=== PATIENT | female | born 1960 | race Caucasian/White ===

== ENCOUNTER 2017-03-28 21:24 | Inpatient (IN) | payer BC ==
[2017-03-28] MEDS ORDERED: NORMAL SALINE 1,000 ML IV ONE (21:57)
[2017-03-28 22:12] LABS: Hematocrit 29.3 % (37.0-47.0); Hemoglobin 9.6 gm/dL (12.5-16.0); Mean Cell Volume 93.6 fl (78-100); Mean Corpuscular Hemoglobin 30.7 pg (27-31); Mean Corpuscular Hgb Conc 32.8 g/dl (32-36); Mean Platelet Volume 9.4 fl (6.0-9.5); Neutrophil # 19.1 K/mm3 (1.3-6.0); Neutrophil % 91.1 % (42-75.0); Platelet Count 331 K/mm3 (150-450); Red Blood Count 3.13 M/mm3 (4.2-5.4); Red Cell Distribution Width 13.6 % (11.5-14.0); White Blood Count 20.9 K/mm3 (4.0-10.5)
[2017-03-28 22:25] LABS: Albumin * 2.9 gm/dl (3.4-5.0); Anion Gap 14.9 mmol/L (6.8-13.8); BUN/Creatinine Ratio 13.4 (9.0-21.6); Bilirubin, Total 0.3 mg/dL (0.0-1.1); Ca. Corrected For Albumin 9.5 mg/dL (8.4-10.2); Calcium * 8.9 mg/dL (7.9-10.9); Carbon Dioxide 24.1 mmol/L (24-32.6); Total Protein 7.4 gm/dL (6.2-8.2)
[2017-03-28 22:29] LABS: Urine Bilirubin Negative (NEGATIVE); Urine Blood 250 /ul (NEGATIVE); Urine Ketone Negative (NEGATIVE); Urine Nitrite Negative (NEGATIVE); Urine Protein 100 mg/dL (NEGATIVE); Urine Urobilinogen Normal (NORMAL)
[2017-03-28] MEDS ORDERED: HYDROmorphone HCL 1 MG/ML DISP.SYRIN IV ONE (22:33)
[2017-03-28 22:36] LABS: Urine Appearance Cloudy; Urine Color Pale Yellow
[2017-03-28 22:37] LABS: Urine Bacteria 3+; Urine RBC 0-5 /hpf (0-5); Urine WBC >50 /hpf (0-5)
--- NOTE | 2017-03-28 22:41 | ERNOTE ---
Abdominal HPI - Narrative Date of Service: 03/28/17 - General Chief Complaint: Abdominal Pain Time Seen by Provider: 03/28/17 21:56 Source: patient - Immun/Allergies/Home Medications Immunizatons: IMMUNIZATION HX Immunizations Up to Date Yes History of Influenza Vaccine No Hx Pneumococcal Vaccination No Allergies/Adverse Reactions: Allergies penicillin V potassium [From Pen-Vee K] Allergy (Mild, Verified 06/28/14 08:39) Home Medications: HOME MEDICATIONS Famotidine 20 mg PO DAILY 03/01/13 [Last Taken Unknown] Lovastatin 40 mg PO DAILY 03/01/13 [Last Taken Unknown] Mycophenolate Mofetil [Cellcept] 500 mg PO BID 03/01/13 [Last Taken Unknown] Tacrolimus [Hecoria] 3 mg PO BID 03/01/13 [Last Taken Unknown] predniSONE [Prednisone] 5 mg PO DAILY 03/01/13 [Last Taken Unknown] Amlodipine Besylate 10 mg PO DAILY 03/28/17 [Last Taken Unknown] Cyanocobalamin (Vitamin B-12) [Vitamin B12] 2,500 mcg PO DAILY 03/28/17 [Last Taken Unknown] Sodium Bicarbonate 325 mg PO TID 03/28/17 [Last Taken Unknown] - History of Present Illness Narrative: Patient presents with left sided flank pain for 2 days she also complains of nausea and fatigue. She denies any dysuria. She states that she takes 2 bites of food and she feels nauseated and is unable to eat any longer. - Patient's Past Medical History Patient History - Medical: No pertinent hx Patient History - Cardiac/Respiratory: No pertinent hx Patient History - Cancer: No Hx of Cancer Patient History - Surgical Procedures: Other Patient History - Other: None - Social History Living Situations: spouse Abuse History: No History of abuse Psych History: No pertinent hx Smoking Status: Never smoker Have you smoked in the past 12 months: No Do you dip or chew tobacco: No Alcohol Use: none Drug Use: none - Immunizations Immunizations Up to Date: Yes Hx Pneumococcal Vaccination: No History of Influenza Vaccine: No ED Progress - Vital Signs Vital Signs: Vital Signs 03/28/17 21:34 Temperature 37.4 C Pulse Rate 110 H Respiratory 16 Rate Blood Pressure 123/74 O2 Sat by Pulse 97 Oximetry - Progress/Reassessment Chief Complaint: Abdominal Pain Departure Clinical Impression: Pyelonephritis - Departure Disposition: [facility] Condition: Fair
[2017-03-28 23:48] LABS: Urine Bilirubin Negative (NEGATIVE); Urine Blood 250 /ul (NEGATIVE); Urine Ketone Negative (NEGATIVE); Urine Nitrite Negative (NEGATIVE); Urine Protein 100 mg/dL (NEGATIVE); Urine Urobilinogen Normal (NORMAL); Urine pH 6.5 pH (5.0-7.0)
[2017-03-28] MEDS ORDERED: HYDROmorphone HCL 1 MG/ML DISP.SYRIN ONE (23:49)
[2017-03-28 23:53] LABS: Urine Appearance Cloudy; Urine Color Pale Yellow
[2017-03-28 23:54] LABS: Urine Bacteria 3+; Urine WBC >50 /hpf (0-5)
[2017-03-29] MEDS ORDERED: NORMAL SALINE 1,000 ML IV ONE (00:36)
[2017-03-29] MEDS ORDERED: ONDANSETRON HCL/PF 2 MG/ML VIAL IV PRN (00:46)
[2017-03-29] MEDS ORDERED: ONDANSETRON HCL/PF 2 MG/ML VIAL ONE (00:51)
[2017-03-29] MEDS ORDERED: ACETAMINOPHEN 325 MG TABLET PO ONE (01:04)
[2017-03-29] MEDS ORDERED: ACETAMINOPHEN 325 MG TABLET ONE (01:05)
--- NOTE | 2017-03-29 01:37 | HP ---
Chief Complaint - Chief Complaint Date of Service: 03/29/17 Time of Service: 01:28 Chief Complaint: "Abdominal Pain & Nausea". Source of HPI- Pt; reliable, ERP report, History of Present Illness: Ms. Miner is a 56-yr-old [place] pt of Dr. Andrei Vogel in [place], [place]. Her PMH is significant for: Anemia, HLD, Bilateral Renal Calcifications, Depression, Polycystic kidney disease s/p RT renal transplant 2011 & Secondary hyperparathyroidsm. Pt states that she first developed LT flank pain on Tuesday 03/27. She took OTC pain medication which provided little relief. Then over the weekend, she started developing nausea, but no vomiting. She reports having decreased appetite and has not drunk much fluid or eaten well. The pain has been unrelenting for the past 3 days and finally chose to come to the ED tonight. The pain radiates to the lower abdomen. She denies fevers, but reports having chills. At the ED tonight, Laboratory studies showed an elevated WBC of 20,900 with a LT shift, BUN/CR of 42/3.14, Est. GFR of 16 and UA was positive for a UTI. During physical examination, she in mild distress from LT flank pain , is found to have LT CVA Tenderness and febrile with a temp of 38. The Abdominal X-ray at the ED did not have any acute findings. No additional radiographic imaging pending/completed. She will be admitted for further work- up of ALIVIA given it's presentation with UTI. - Patient's Past Medical History Patient History - Medical: Anemia, Depression, Other - Bilateral Renal Calcifications, Depression, Polycystic kidney disease s/p RT renal transplant 2011 & Secondary hyperparathyroidsm. Patient History - Cardiac/Respiratory: No pertinent hx Patient History - Cancer: No Hx of Cancer Patient History - Surgical Procedures: Other - Cystoscopy, 2009 Patient History - Other: None - Family History Mother Family History - Medical: , Renal Failure Family History - Cardiac/Respiratory: No pertinent hx Family History - Cancer: No pertinent family hx Brother Family History - Medical: Renal Failure, Other Father Family History - Medical: , History Unknown Family History - Cardiac/Respiratory: History Unknown Family History - Cancer: History Unknown - Social History Living Situations: spouse Abuse History: No History of abuse Psych History: No pertinent hx Smoking Status: Never smoker Have you smoked in the past 12 months: No Do you dip or chew tobacco: No Alcohol Use: none Drug Use: none - Immunizations Immunizations Up to Date: Yes Hx Pneumococcal Vaccination: No History of Influenza Vaccine: No Review Of Systems (GEN) - Review of Systems Generalized/Overall Review: Present: Weakness, Chills, Fever EENTM: Absent: Eye Pain, Blurred Vision, Tearing Respiratory: Absent: Cough, Shortness of Breath, Orthopnea Cardiac: Absent: Chest Pain, Edema, Palpitations Abdominal: Present: Nausea, Vomiting, Abdominal Pain. Absent: Hematemesis, Constipation, Diarrhea Genitourinary: Absent: Burning, Itching, Urgency, Frequency Musculoskeletal: Absent: Joint Pain, Back Pain, Joint Swelling Neurological: Absent: Headache, Anxiety, Depressed, Emotional Problems Skin: Absent: Dryness, Lesions, Lumps Endocrine: Present: Intolerance to Cold. Absent: Increased Hunger, Increased Thirst Misc: All systems neg except as marked Allergies/Adverse Reactions: Allergies Allergy/AdvReac Type Severity Reaction Status Date / Time penicillin V potassium Allergy Mild Verified 06/28/14 08:39 [From Enoch Hidalgo] Home Medications: HOME MEDICATIONS Famotidine 20 mg PO DAILY 03/01/13 [Last Taken Unknown] Lovastatin 40 mg PO DAILY 03/01/13 [Last Taken Unknown] Mycophenolate Mofetil [Cellcept] 500 mg PO BID 03/01/13 [Last Taken Unknown] Tacrolimus [Hecoria] 3 mg PO BID 03/01/13 [Last Taken Unknown] predniSONE [Prednisone] 5 mg PO DAILY 03/01/13 [Last Taken Unknown] Amlodipine Besylate 10 mg PO DAILY 03/28/17 [Last Taken Unknown] Cyanocobalamin (Vitamin B-12) [Vitamin B12] 2,500 mcg PO DAILY 03/28/17 [Last Taken Unknown] Sodium Bicarbonate 325 mg PO TID 03/28/17 [Last Taken Unknown] Exam - Exam Vital Signs: Vital Signs - Last Taken Temp 38.1 C H 03/28/17 23:52 Pulse 99 03/28/17 23:52 Resp 18 03/28/17 23:52 BP 137/63 03/28/17 23:52 Pulse Ox 98 03/28/17 23:52 Constitutional: Present: Alert, Oriented x3, Cooperative, Mild distress ENT Exam: Present: normal ENT inspection. Absent: nasal congestion, nasal drainage Eye Exam: bilateral eye: normal inspection, PERRL Neck: Present: non-tender, full range of motion, supple Back Exam: Present: CVA tenderness (L) Breasts: Present: Exam deferred Respiratory: Present: lungs clear, no accessory muscle use, No wheezing Cardiovascular/Chest: Present: tachycardia Abdomen: Present: Normal bowel sounds, soft, tender - llq /Rectal: Present: Exam deferred Extremity: Present: normal range of motion, non-tender, normal inspection Skin Exam: Present: warm/dry, no cyanosis Lymphatic: Present: no adenopathy Neurologic: Present: no motor/sensory deficits, alert, oriented x 3 Appearance: Present: appropriate appearance, appropriate insight Eye contact: Present: cooperative, good eye contact, normal speech Thoughts: Present: normal thought pattern, no apparent hallucination Diagnostic Studies: Laboratory Results WBC 20.9 K/mm3 (4.0-10.5) H 03/28/17 22:10 RBC 3.13 M/mm3 (4.2-5.4) L 03/28/17 22:10 Hgb 9.6 gm/dL (12.5-16.0) L 03/28/17 22:10 Hct 29.3 % (37.0-47.0) L 03/28/17 22:10 MCV 93.6 fl (78-100) 03/28/17 22:10 MCH 30.7 pg (27-31) 03/28/17 22:10 MCHC 32.8 g/dl (32-36) 03/28/17 22:10 RDW 13.6 % (11.5-14.0) 03/28/17 22:10 Plt Count 331 K/mm3 (150-450) 03/28/17 22:10 MPV 9.4 fl (6.0-9.5) 03/28/17 22:10 Immature Gran % (Auto) 0.70 % (0.001-0.429) H 03/28/17 22:10 Immature Gran # (Auto) 0.15 K/mm3 (0.000-0.0310) H 03/28/17 22:10 Neutrophils % 91.1 % (42-75.0) H 03/28/17 22:10 Lymphocytes % 2.2 % (20-51) L 03/28/17 22:10 Monocytes % 6.0 % (0.0-9) 03/28/17 22:10 Eosinophils % 0.0 % (0.0-3.0) 03/28/17 22:10 Basophils % 0.0 % (0.0-1.0) 03/28/17 22:10 Nucleated RBC % 0.0 k/mm3 (0-1) 03/28/17 22:10 Neutrophils # 19.1 K/mm3 (1.3-6.0) H 03/28/17 22:10 Lymphocytes # 0.5 k/mm3 (1.5-3.5) L 03/28/17 22:10 Monocytes # 1.3 k/mm3 (0.0-1.0) H 03/28/17 22:10 Eosinophils # 0.0 k/mm3 (0.0-0.7) 03/28/17 22:10 Absolute Basophils 0.0 k/mm3 (0.0-0.1) 03/28/17 22:10 Sodium 135 mmol/L (132-142) 03/28/17 22:10 Plasma Sodium 136 mmol/L (130-142) 03/28/17 22:10 Potassium 4.0 mmol/L (3.4-4.6) 03/28/17 22:10 Chloride 100 mmol/L (97-106) 03/28/17 22:10 Carbon Dioxide 24.1 mmol/L (24-32.6) 03/28/17 22:10 Anion Gap 14.9 mmol/L (6.8-13.8) H 03/28/17 22:10 BUN 42 mg/dL (3-23) H 03/28/17 22:10 Creatinine 3.14 mg/dL (0.4-1.4) H 03/28/17 22:10 Est GFR (Non-Af Amer) 16 mL/min (60-130) L D 03/28/17 22:10 BUN/Creatinine Ratio 13.4 (9.0-21.6) 03/28/17 22:10 Random Glucose 156 mg/dL (70-110) H 03/28/17 22:10 Lactic Acid, Venous 0.9 mmol/L (0.4-1.9) 03/28/17 23:35 Calcium 8.9 mg/dL (7.9-10.9) 03/28/17 22:10 Calcium Adj for Albumin 9.5 mg/dL (8.4-10.2) 03/28/17 22:10 Total Bilirubin 0.3 mg/dL (0.0-1.1) 03/28/17 22:10 AST 8 U/L (0-48) 03/28/17 22:10 ALT 10 U/L (19-67) L 03/28/17 22:10 Alkaline Phosphatase 89 U/L (50-170) 03/28/17 22:10 Total Protein 7.4 gm/dL (6.2-8.2) 03/28/17 22:10 Albumin 2.9 gm/dl (3.4-5.0) L 03/28/17 22:10 Urine Color Pale yellow 03/28/17 23:35 Urine Appearance Cloudy 03/28/17 23:35 Urine pH 6.5 pH (5.0-7.0) 03/28/17 23:35 Ur Specific Vera 1.010 SP.GR. (1.005-1.010) 03/28/17 23:35 Urine Protein 100 mg/dL (NEGATIVE) H 03/28/17 23:35 Urine Glucose (UA) Negative mg/dL (NEGATIVE) 03/28/17 23:35 Urine Ketones Negative mg/dL (NEGATIVE) 03/28/17 23:35 Urine Blood 250 /ul (NEGATIVE) H 03/28/17 23:35 Urine Nitrate Negative (NEGATIVE) 03/28/17 23:35 Urine Bilirubin Negative mg/dl (NEGATIVE) 03/28/17 23:35 Prot Sulfosalicylic Acd 4+ mg/dL (0) H 03/28/17 23:35 Urine Urobilinogen Normal EU/dl (NORMAL) 03/28/17 23:35 Ur Leukocyte Esterase 100 /ul (NEGATIVE) H 03/28/17 23:35 Urine RBC 5-10 /hpf (0-5) H 03/28/17 23:35 Urine WBC >50 /hpf (0-5) H 03/28/17 23:35 Ur Epithelial Cells None seen /hpf (0-5) 03/28/17 23:35 Urine Bacteria 3+ (NONE) H 03/28/17 23:35 Urine Culture Comments Culture to follow 03/28/17 23:35 Assessment/Plan - Assessment/Plan (1) Pyelonephritis Assessment: Pt presented with LT flank pain, fever, nausea, noted to have a UTI on UA and had LT CVA tenderness. Started on Rocephin 2 gm IV and will continue till urine culture results. Consider need for additional imaging to determine if there is urinary tract obstruction. Problem: Acute (2) UTI (urinary tract infection) Assessment: Continue with Rocephin for now due to poor kidney function. Laboratory Tests 03/28/17 03/28/17 22:24 23:35 Urine Protein 100 H Urine Blood 250 H 250 H Prot Sulfosalicylic Acd 4+ H Ur Leukocyte Esterase 100 H Urine RBC 5-10 H Urine WBC >50 H Urine Bacteria 3+ H Problem: Acute (3) Acute kidney injury Assessment: Suspect that the ALIVIA is due to postrenal causes from obstruction of urinal flow or other extrarenal or intrarenal obstruction. She has a history of bilateral renal calcifications. Consider obtaining a Renal US or Abdominal US in am. Laboratory Tests 03/28/17 22:10 BUN 42 H Creatinine 3.14 H Est GFR (Non-Af Amer) 16 L D Problem: Acute (4) HLD (hyperlipidemia) Assessment: Stable- On Zocor. Problem: Chronic (5) Depression Problem: Chronic
[2017-03-29] MEDS ORDERED: TACROLIMUS ANHYDROUS 0.5 MG CAPSULE PO SCH (02:00)
[2017-03-29] MEDS ORDERED: MYCOPHENOLATE MOFETIL 500 MG TABLET PO SCH (02:00)
[2017-03-29 06:17] LABS: Hematocrit 31.7 % (37.0-47.0); Hemoglobin 9.8 gm/dL (12.5-16.0); Mean Cell Volume 96.6 fl (78-100); Mean Corpuscular Hemoglobin 29.9 pg (27-31); Mean Corpuscular Hgb Conc 30.9 g/dl (32-36); Mean Platelet Volume 9.6 fl (6.0-9.5); Neutrophil # 15.2 K/mm3 (1.3-6.0); Neutrophil % 88.3 % (42-75.0); Platelet Count 312 K/mm3 (150-450); Red Blood Count 3.28 M/mm3 (4.2-5.4); Red Cell Distribution Width 13.4 % (11.5-14.0); White Blood Count 17.2 K/mm3 (4.0-10.5)
[2017-03-29 06:20] LABS: Anion Gap 15.6 mmol/L (6.8-13.8); BUN/Creatinine Ratio 12.2 (9.0-21.6); Calcium * 8.5 mg/dL (7.9-10.9); Carbon Dioxide 22.6 mmol/L (24-32.6); Estimated Creat Clear 16.4; Potassium 4.2 mmol/L (3.4-4.6)
[2017-03-29] MEDS: CYANOCOBALAMIN 1,000 MCG TABLET PO SCH (07:38)
[2017-03-29] MEDS: MYCOPHENOLATE MOFETIL 500 MG TABLET PO SCH ×2 (07:38→16:50)
[2017-03-29] MEDS: SODIUM BICARBONATE 650 MG TABLET PO SCH ×3 (07:38→16:56)
[2017-03-29] MEDS: TACROLIMUS ANHYDROUS 0.5 MG CAPSULE PO SCH ×2 (07:38→16:49)
[2017-03-29] MEDS: FAMOTIDINE 20 MG TABLET PO SCH (07:39)
[2017-03-29] MEDS: predniSONE 5 MG TABLET PO SCH (07:39)
[2017-03-29] MEDS: amLODIPine BESYLATE 10 MG TABLET PO SCH (07:39)
[2017-03-29] MEDS ORDERED: CYANOCOBALAMIN 1,000 MCG TABLET PO SCH (09:00)
[2017-03-29] MEDS ORDERED: SODIUM BICARBONATE 650 MG TABLET PO SCH (09:00)
[2017-03-29] MEDS ORDERED: predniSONE 5 MG TABLET PO SCH (09:00)
[2017-03-29] MEDS ORDERED: FLU VACC QS2017-18(6MOS UP)/PF 60 MCG/0.5 ML SYRINGE IM ONE (09:00)
[2017-03-29] MEDS ORDERED: FAMOTIDINE 20 MG TABLET PO SCH (09:00)
[2017-03-29] MEDS ORDERED: amLODIPine BESYLATE 10 MG TABLET PO SCH (09:00)
[2017-03-29] MEDS: DEXTROSE 5%-0.5 NORMAL SALINE 1,000 ML IV PRN ×2 (10:49→18:53)
[2017-03-29] MEDS: HYDROmorphone HCL 1 MG/ML DISP.SYRIN IV PRN ×3 (12:21→18:56)
--- NOTE | 2017-03-29 16:41 | PN ---
Progess Note - Interim Narrative: 03/29/17 16:34 Her WBC has improved . Her fever has lysed for now. She continues to have left flank pain on and off. Her CJ showed no hydronephrosis, pelviecstasis on her right transplant kidney, multiple cysts b/l kidneys, no renal stones. Will continue with her IVF, IV antibiotics. Her pain could be due to her cysts that can be come hemorrhagic. Her pelviecstasis- dilatations could be seen in transplanted kidneys but cannot rule out UTO. Her s/sx are on the left are on the left side though. Will get Urology consult.
[2017-03-29] MEDS: SIMVASTATIN 20 MG TABLET PO SCH (20:08)
[2017-03-30] MEDS: ACETAMINOPHEN 325 MG TABLET PO PRN ×2 (01:31→12:59)
[2017-03-30 06:00] LABS: Hematocrit 27.9 % (37.0-47.0); Mean Cell Volume 94.9 fl (78-100); Mean Corpuscular Hemoglobin 30.6 pg (27-31); Mean Corpuscular Hgb Conc 32.3 g/dl (32-36); Neutrophil # 16.7 K/mm3 (1.3-6.0); Platelet Count 299 K/mm3 (150-450); Red Blood Count 2.94 M/mm3 (4.2-5.4); Red Cell Distribution Width 13.5 % (11.5-14.0)
[2017-03-30 06:20] LABS: Anion Gap 16.1 mmol/L (6.8-13.8); BUN/Creatinine Ratio 9.9 (9.0-21.6); Calcium * 8.6 mg/dL (7.9-10.9); Estimated Creat Clear 18.4; Potassium 4.1 mmol/L (3.4-4.6)
[2017-03-30] MEDS: MYCOPHENOLATE MOFETIL 500 MG TABLET PO SCH ×2 (06:27→17:17)
[2017-03-30] MEDS: predniSONE 5 MG TABLET PO SCH (06:27)
[2017-03-30] MEDS: amLODIPine BESYLATE 10 MG TABLET PO SCH (06:28)
[2017-03-30] MEDS: FAMOTIDINE 20 MG TABLET PO SCH (06:28)
[2017-03-30] MEDS: TACROLIMUS ANHYDROUS 0.5 MG CAPSULE PO SCH ×2 (06:28→17:17)
[2017-03-30] MEDS: CYANOCOBALAMIN 1,000 MCG TABLET PO SCH (06:28)
[2017-03-30] MEDS: SODIUM BICARBONATE 650 MG TABLET PO SCH ×3 (06:28→17:17)
[2017-03-30] MEDS: DEXTROSE 5%-0.5 NORMAL SALINE 1,000 ML IV PRN ×2 (06:31→20:46)
--- NOTE | 2017-03-30 08:01 | PN ---
Subjective - Date and Time Seen Date: 03/30/17 Time: 07:56 Subjective Narrative: Could not tolerate regular diet this morning- got nauseous. Clinically feels better. Tmax-37.7. Objective - Review of Systems Generalized/Overall Review: Reports: Weakness, Fever EENTM: Reports: No Symptoms Reported Respiratory: Denies: Cough, Shortness of Breath, Orthopnea Cardiac: Denies: Chest Pain, Edema, Palpitations Abdominal: Reports: Nausea. Denies: Vomiting, Abdominal Pain Genitourinary Symptoms: Denies: Urgency, Frequency Musculoskeletal Complaints: Reports: Back Pain - improved, left flank - Vitals Vitals: Last Vital Signs Temp 37 C 03/30/17 07:25 Pulse 101 H 03/30/17 07:25 Resp 18 03/30/17 07:25 BP 141/70 03/30/17 07:25 Pulse Ox 98 03/30/17 07:25 - Abnormal Lab Findings Abnormal Lab Findings: Abnormal Lab Results 03/30/17 03/30/17 Range/Units 05:25 05:25 WBC 19.0 H (4.0-10.5) K/mm3 RBC 2.94 L (4.2-5.4) M/mm3 Hgb 9.0 L (12.5-16.0) gm/dL Hct 27.9 L (37.0-47.0) % MPV 10.0 H (6.0-9.5) fl Immature Gran % (Auto) 1.20 H (0.001-0.429) % Immature Gran # (Auto) 0.23 H (0.000-0.0310) K/mm3 Neutrophils % 88.0 H (42-75.0) % Lymphocytes % 3.1 L (20-51) % Neutrophils # 16.7 H (1.3-6.0) K/mm3 Lymphocytes # 0.6 L (1.5-3.5) k/mm3 Monocytes # 1.4 H (0.0-1.0) k/mm3 Carbon Dioxide 21.0 L (24-32.6) mmol/L Anion Gap 16.1 H (6.8-13.8) mmol/L BUN 26 H (3-23) mg/dL Creatinine 2.63 H (0.4-1.4) mg/dL Est GFR (Non-Af Amer) 20 L (60-130) mL/min Random Glucose 125 H (70-110) mg/dL - Exam Constitutional: Present: Alert, Oriented x3, Cooperative ENT Exam: Present: hearing grossly normal Neck: Present: supple Respiratory: Present: normal breath sounds, No rales, No wheezing Cardiovascular/Chest: Present: regular rate, rhythm, no JVD, no murmur Abdomen: Present: Normal bowel sounds, soft, nontender, nondistended Extremity: Present: no pedal edema, no calf tenderness Assessment/Plan - Problems/Diagnosis (1) Acute renal failure (ARF) Problem: Acute Narrative: on CRF. Cr continues to improve- down to 2.67. She says her baseline Cr is 2.4. (2) Pyelonephritis Problem: Acute Narrative: Interim Progress Notes 03/29/17: Her WBC has improved . Her fever has lysed for now. She continues to have left flank pain on and off. Her CJ showed no hydronephrosis, pelviecstasis on her right transplant kidney, multiple cysts b/ l kidneys, no renal stones. Will continue with her IVF, IV antibiotics. Her pain could be due to her cysts that can be come hemorrhagic. Her pelviecstasis- dilatations could be seen in transplanted kidneys but cannot rule out UTO. Her s /sx are on the left are on the left side though. Will get Urology consult. Will switch Ceftriaxone to cefepime for Pseudomonas coverage as well. ADDENDUM: Gram negative rods on UCS per lab. ADDENDUM: discussed with Dr. Marte: It is normal to see pelviectasis in transplanted kidney. It takes a while for people with kidney transplant to respond to treatment. Continue with IV antibiotics. (3) Leukocytosis Problem: Acute Narrative: Improved from 21 to 17 but now back up to 19. Will switch to Cefepime to cover Pseudomonas. (4) Renal transplant recipient Problem: Chronic Narrative: right
[2017-03-30] MEDS: ENOXAPARIN SODIUM 30 MG/0.3 ML SYRG SC SCH (09:53)
[2017-03-30] MEDS: CEFEPIME HCL 1 GM in DEXTROSE 5 % IN WATER 100 ML IV SCH ×2 (09:54)
[2017-03-30] MEDS: HYDROmorphone HCL 1 MG/ML DISP.SYRIN IV PRN (19:23)
[2017-03-30] MEDS: SIMVASTATIN 20 MG TABLET PO SCH (20:20)
[2017-03-30] MEDS ORDERED: traZODone HCL 50 MG TABLET PO PRN (21:00)
[2017-03-31 06:03] LABS: Hematocrit 24.9 % (37.0-47.0); Mean Cell Volume 93.3 fl (78-100); Mean Corpuscular Hgb Conc 32.1 g/dl (32-36); Mean Platelet Volume 9.9 fl (6.0-9.5); Neutrophil # 14.7 K/mm3 (1.3-6.0); Neutrophil % 88.9 % (42-75.0); Platelet Count 286 K/mm3 (150-450); Red Blood Count 2.67 M/mm3 (4.2-5.4); Red Cell Distribution Width 13.4 % (11.5-14.0); White Blood Count 16.5 K/mm3 (4.0-10.5)
[2017-03-31 06:15] LABS: Anion Gap 14.9 mmol/L (6.8-13.8); BUN/Creatinine Ratio 9.3 (9.0-21.6); Calcium * 8.5 mg/dL (7.9-10.9); Estimated Creat Clear 20.6; Potassium 3.9 mmol/L (3.4-4.6)
[2017-03-31] MEDS: DEXTROSE 5%-0.5 NORMAL SALINE 1,000 ML IV PRN (06:56)
[2017-03-31] MEDS: TACROLIMUS ANHYDROUS 0.5 MG CAPSULE PO SCH ×2 (07:10→17:26)
[2017-03-31] MEDS: amLODIPine BESYLATE 10 MG TABLET PO SCH (07:11)
[2017-03-31] MEDS: CYANOCOBALAMIN 1,000 MCG TABLET PO SCH (07:11)
[2017-03-31] MEDS: SODIUM BICARBONATE 650 MG TABLET PO SCH ×3 (07:11→17:26)
[2017-03-31] MEDS: predniSONE 5 MG TABLET PO SCH (07:12)
[2017-03-31] MEDS: FAMOTIDINE 20 MG TABLET PO SCH (07:12)
[2017-03-31] MEDS: MYCOPHENOLATE MOFETIL 500 MG TABLET PO SCH ×2 (07:12→17:26)
--- NOTE | 2017-03-31 07:56 | PN ---
Subjective - Date and Time Seen Date: 03/31/17 Time: 07:50 Subjective Narrative: Patient had nausea and vomited her morning meds. Denies CHRISTOPHER/diarrhea.Has not had BM yet but passes gas. Afebrile. Tmax 37. Objective - Review of Systems Generalized/Overall Review: Denies: Chills, Fever Respiratory: Denies: Cough, Shortness of Breath Cardiac: Denies: Chest Pain, Edema, Palpitations Abdominal: Reports: Nausea, Vomiting. Denies: Abdominal Pain Genitourinary Symptoms: Reports: Urgency, Frequency Musculoskeletal Complaints: Denies: Joint Pain Neurological: Denies: Headache - Vitals Vitals: Last Vital Signs Temp 36.8 C 03/31/17 06:38 Pulse 104 H 03/31/17 07:11 Resp 28 H 03/31/17 06:38 BP 125/70 03/31/17 07:11 Pulse Ox 95 03/31/17 06:38 - Abnormal Lab Findings Abnormal Lab Findings: Abnormal Lab Results 03/31/17 03/31/17 Range/Units 05:30 05:30 WBC 16.5 H (4.0-10.5) K/mm3 RBC 2.67 L (4.2-5.4) M/mm3 Hgb 8.0 L (12.5-16.0) gm/dL Hct 24.9 L (37.0-47.0) % MPV 9.9 H (6.0-9.5) fl Immature Gran % (Auto) 0.80 H (0.001-0.429) % Immature Gran # (Auto) 0.13 H (0.000-0.0310) K/mm3 Neutrophils % 88.9 H (42-75.0) % Lymphocytes % 2.5 L (20-51) % Neutrophils # 14.7 H (1.3-6.0) K/mm3 Lymphocytes # 0.4 L (1.5-3.5) k/mm3 Monocytes # 1.2 H (0.0-1.0) k/mm3 Carbon Dioxide 19.0 L (24-32.6) mmol/L Anion Gap 14.9 H (6.8-13.8) mmol/L Creatinine 2.36 H (0.4-1.4) mg/dL Est GFR (Non-Af Amer) 22 L (60-130) mL/min Random Glucose 138 H (70-110) mg/dL - Exam Constitutional: Present: Alert, Oriented x3, Cooperative ENT Exam: Present: hearing grossly normal Neck: Present: supple Respiratory: Present: normal breath sounds, No rales, No wheezing Cardiovascular/Chest: Present: regular rate, rhythm, no JVD, no murmur Abdomen: Present: Normal bowel sounds, soft, nontender, distended Extremity: Present: no pedal edema, no calf tenderness Assessment/Plan - Problems/Diagnosis (1) Acute renal failure (ARF) Problem: Acute Narrative: Cr down to 2.36 (2) Pyelonephritis Problem: Acute Narrative: WBC down to 16. Continue with IV Cefepime (3) Leukocytosis Problem: Acute Narrative: down to 16 (4) Renal transplant recipient Problem: Chronic (5) Nausea & vomiting Problem: Acute Narrative: will add LFT/amylase/lipase and get flat and upright palte of abdomen. continue with IV zofran PRN. ADDENDUM: Nonspecific bowel gas pattern, nonobstructive, consider colitis?inflammatory vs infectious. unlikley vascualr. 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 This could also be drug induced- Cell Cept- can cause N/V/ colitis or due to Tacrolimus. ADDENDUM: CXR for increase RR- cardiomegaly/pulmonary congestion- likely due to fluid overload. hold IVF . lasix 4 mg IV x 1. Will decrease her Cell-cept and tacroliminus dose for now and see if she improves. If not will get a CTS of her abdomen and pelvis with PO contrast.
[2017-03-31 08:03] LABS: Albumin * 2.1 gm/dl (3.4-5.0); Bilirubin Direct 0.1 mg/dL (0.0-0.3); Bilirubin, Total 0.3 mg/dL (0.0-1.1); Bilirubin,Indirect 0.2 mg/dL (0.1-0.7); Total Protein 6.2 gm/dL (6.2-8.2)
[2017-03-31] MEDS: ACETAMINOPHEN 325 MG TABLET PO PRN (08:04)
[2017-03-31] MEDS: PANTOPRAZOLE SODIUM 40 MG in NORMAL SALINE 100 ML IV SCH (09:22)
[2017-03-31] MEDS: CEFEPIME HCL 1 GM in DEXTROSE 5 % IN WATER 100 ML IV SCH ×2 (09:28)
[2017-03-31] MEDS: ENOXAPARIN SODIUM 30 MG/0.3 ML SYRG SC SCH (09:29)
[2017-03-31] MEDS ORDERED: FUROSEMIDE 10 MG/ML VIAL IV ONE (15:09)
[2017-03-31] MEDS: SIMVASTATIN 20 MG TABLET PO SCH (20:15)
[2017-04-01 05:57] LABS: Anion Gap 15.2 mmol/L (6.8-13.8); BUN/Creatinine Ratio 8.7 (9.0-21.6); Calcium * 8.7 mg/dL (7.9-10.9); Carbon Dioxide 21.9 mmol/L (24-32.6); Estimated Creat Clear 19.1; Potassium 4.1 mmol/L (3.4-4.6)
[2017-04-01 05:59] LABS: Hematocrit 24.8 % (37.0-47.0); Hemoglobin 8.2 gm/dL (12.5-16.0); Mean Cell Volume 92.5 fl (78-100); Mean Corpuscular Hemoglobin 30.6 pg (27-31); Mean Corpuscular Hgb Conc 33.1 g/dl (32-36); Mean Platelet Volume 9.7 fl (6.0-9.5); Neutrophil # 11.2 K/mm3 (1.3-6.0); Neutrophil % 85.5 % (42-75.0); Platelet Count 331 K/mm3 (150-450); Red Blood Count 2.68 M/mm3 (4.2-5.4); Red Cell Distribution Width 13.4 % (11.5-14.0); White Blood Count 13.1 K/mm3 (4.0-10.5)
[2017-04-01] MEDS: MYCOPHENOLATE MOFETIL 500 MG TABLET PO SCH ×2 (07:22→17:55)
[2017-04-01] MEDS: CYANOCOBALAMIN 1,000 MCG TABLET PO SCH (07:22)
[2017-04-01] MEDS: TACROLIMUS ANHYDROUS 0.5 MG CAPSULE PO SCH ×2 (07:23→17:55)
[2017-04-01] MEDS: predniSONE 5 MG TABLET PO SCH (07:24)
[2017-04-01] MEDS: amLODIPine BESYLATE 10 MG TABLET PO SCH (07:24)
[2017-04-01] MEDS: SODIUM BICARBONATE 650 MG TABLET PO SCH ×3 (07:24→17:55)
[2017-04-01] MEDS: PANTOPRAZOLE SODIUM 40 MG in NORMAL SALINE 100 ML IV SCH (07:26)
--- NOTE | 2017-04-01 07:51 | PN ---
Subjective - Date and Time Seen Date: 04/01/17 Time: 07:43 Subjective Narrative: Patient is better. tolerating full liquids. Had BM this morning. No N/V but still with on and off LUQ/Left flank pain. Objective - Review of Systems Generalized/Overall Review: Denies: Chills, Fever Respiratory: Denies: Cough, Shortness of Breath Cardiac: Denies: Chest Pain, Edema, Palpitations Abdominal: Reports: Abdominal Pain. Denies: Nausea, Vomiting Genitourinary Symptoms: Denies: Urgency, Frequency - Vitals Vitals: Last Vital Signs Temp 36.5 C 04/01/17 06:43 Pulse 95 04/01/17 07:24 Resp 32 H 04/01/17 06:43 BP 132/72 04/01/17 07:24 Pulse Ox 95 04/01/17 06:43 - Abnormal Lab Findings Abnormal Lab Findings: Abnormal Lab Results 03/31/17 03/31/17 03/31/17 Range/Units 05:30 11:40 11:40 WBC (4.0-10.5) K/mm3 RBC (4.2-5.4) M/mm3 Hgb (12.5-16.0) gm/dL Hct (37.0-47.0) % MPV (6.0-9.5) fl Immature Gran % (Auto) (0.001-0.429) % Immature Gran # (Auto) (0.000-0.0310) K/mm3 Neutrophils % (42-75.0) % Lymphocytes % (20-51) % Neutrophils # (1.3-6.0) K/mm3 Lymphocytes # (1.5-3.5) k/mm3 ESR 113 H (0-15) mm/hr Carbon Dioxide (24-32.6) mmol/L Anion Gap (6.8-13.8) mmol/L Creatinine (0.4-1.4) mg/dL Est GFR (Non-Af Amer) (60-130) mL/min BUN/Creatinine Ratio (9.0-21.6) ALT 13 L (19-67) U/L C-Reactive Prot, Quant 42.2 H (0.0-0.9) mg/dL B-Natriuretic Peptide (5-205) pg/mL Albumin 2.1 L (3.4-5.0) gm/dl 11/08/17 11/09/17 11/09/17 Range/Units 11:40 05:15 05:15 WBC 13.1 H D (4.0-10.5) K/mm3 RBC 2.68 L (4.2-5.4) M/mm3 Hgb 8.2 L (12.5-16.0) gm/dL Hct 24.8 L (37.0-47.0) % MPV 9.7 H (6.0-9.5) fl Immature Gran % (Auto) 0.90 H (0.001-0.429) % Immature Gran # (Auto) 0.12 H (0.000-0.0310) K/mm3 Neutrophils % 85.5 H (42-75.0) % Lymphocytes % 5.1 L (20-51) % Neutrophils # 11.2 H (1.3-6.0) K/mm3 Lymphocytes # 0.7 L (1.5-3.5) k/mm3 ESR (0-15) mm/hr Carbon Dioxide 21.9 L (24-32.6) mmol/L Anion Gap 15.2 H (6.8-13.8) mmol/L Creatinine 2.54 H (0.4-1.4) mg/dL Est GFR (Non-Af Amer) 21 L (60-130) mL/min BUN/Creatinine Ratio 8.7 L (9.0-21.6) ALT (19-67) U/L C-Reactive Prot, Quant (0.0-0.9) mg/dL B-Natriuretic Peptide 3208 H (5-205) pg/mL Albumin (3.4-5.0) gm/dl - Exam Constitutional: Present: Alert, Oriented x3, Cooperative ENT Exam: Present: hearing grossly normal Neck: Present: supple Respiratory: Present: decreased breath sounds, No rales, No wheezing Cardiovascular/Chest: Present: regular rate, rhythm, no JVD, no murmur Abdomen: Present: Normal bowel sounds, soft, tender - mildy LUQ and Lwft flank area, distended - slightly Extremity: Present: no pedal edema, no calf tenderness Assessment/Plan - Problems/Diagnosis (1) Acute renal failure (ARF) Problem: Acute Narrative: Cr 2.5. CRF Stage IV. encouraged increase oral fluids. (2) Pyelonephritis Problem: Acute Narrative: WBC gping down . Continue with IV antibiotics. (3) Leukocytosis Problem: Acute Narrative: down to 13. (4) Renal transplant recipient Problem: Chronic (5) Nausea & vomiting Problem: Resolved Narrative: Colitis on AXR. She does not want CTS with PO contrast for now. will get surgical consult with Dr. Shultz. (6) Anemia Problem: Chronic Narrative: will do anemia work up.
[2017-04-01] MEDS: ACETAMINOPHEN 325 MG TABLET PO PRN ×2 (08:12→18:07)
[2017-04-01 08:32] LABS: Iron 21 mcg/dL (35-120); Transferrin Sat. (% Sat.) 19 % (15-55)
[2017-04-01 08:38] LABS: Folate 19.1 ng/mL (>5.4)
[2017-04-01 08:39] LABS: Ferritin 1244 ng/mL (8-252)
--- NOTE | 2017-04-01 09:48 | OR ---
Anesthesia Procedure Note - Anesthesia Procedure Note Date of Service: 04/01/17 Narrative: Vital Signs - Last Taken Temp 36.5 C 04/01/17 06:43 Pulse 95 04/01/17 07:24 Resp 32 H 04/01/17 06:43 BP 132/72 04/01/17 07:24 Pulse Ox 95 04/01/17 06:43 O2 Oxygen Delivery Method Room Air 04/01/17 09:45 ANESTHESIA PROCEDURE NOTE Date of Procedure: 04/01/2017 Time of procedure: 935 AM. Performed by: FREDDIE Hernandez CRNA, MSN Preprocedure diagnosis: Pyelonephritis, lack of IV access. Post procedure diagnosis: Same. Procedure: Venipuncture for IV access. Indications: Pyelonephritis, lack of IV access. Findings: See below. Details of the procedure: The patient was prepped with Betadine and alcohol, 0.1 mL of 1% lidocaine solution was injected at the intended IV site. A #22- gauge IV was inserted without issue, and extension with a male adapter which had been previously flushed with saline was attached and flushed. The catheter was then secured in place. EBL: Minimal. Fluids: N/A. Specimen: N/A. Post procedure condition: The patient tolerated the procedure well. No complications were noted. Thank you for this consultation. Andrei Jean Baptiste CRNA, LIBRARIAN HELPER, MSN
[2017-04-01] MEDS: CEFEPIME HCL 1 GM in DEXTROSE 5 % IN WATER 100 ML IV SCH ×2 (10:07)
[2017-04-01] MEDS: ENOXAPARIN SODIUM 30 MG/0.3 ML SYRG SC SCH (10:07)
[2017-04-01] MEDS: SIMVASTATIN 20 MG TABLET PO SCH (20:45)
[2017-04-02 05:50] LABS: Hematocrit 24.4 % (37.0-47.0); Mean Cell Volume 92.4 fl (78-100); Mean Corpuscular Hemoglobin 30.3 pg (27-31); Mean Corpuscular Hgb Conc 32.8 g/dl (32-36); Mean Platelet Volume 9.2 fl (6.0-9.5); Neutrophil # 10.4 K/mm3 (1.3-6.0); Neutrophil % 83.7 % (42-75.0); Platelet Count 363 K/mm3 (150-450); Red Blood Count 2.64 M/mm3 (4.2-5.4); Red Cell Distribution Width 13.4 % (11.5-14.0); White Blood Count 12.5 K/mm3 (4.0-10.5)
[2017-04-02 05:52] LABS: Anion Gap 13.8 mmol/L (6.8-13.8); BUN/Creatinine Ratio 10.4 (9.0-21.6); Calcium * 8.6 mg/dL (7.9-10.9); Carbon Dioxide 23.8 mmol/L (24-32.6); Estimated Creat Clear 19.4; Potassium 4.6 mmol/L (3.4-4.6)
[2017-04-02] MEDS: TACROLIMUS ANHYDROUS 0.5 MG CAPSULE PO SCH ×2 (06:41→17:31)
[2017-04-02] MEDS: ACETAMINOPHEN 325 MG TABLET PO PRN (06:41)
[2017-04-02] MEDS: amLODIPine BESYLATE 10 MG TABLET PO SCH (06:41)
[2017-04-02] MEDS: CYANOCOBALAMIN 1,000 MCG TABLET PO SCH (06:42)
[2017-04-02] MEDS: predniSONE 5 MG TABLET PO SCH (06:42)
[2017-04-02] MEDS: MYCOPHENOLATE MOFETIL 500 MG TABLET PO SCH ×2 (06:42→17:31)
[2017-04-02] MEDS: SODIUM BICARBONATE 650 MG TABLET PO SCH ×3 (06:42→17:31)
[2017-04-02] MEDS: PANTOPRAZOLE SODIUM 40 MG in NORMAL SALINE 100 ML IV SCH (06:51)
--- NOTE | 2017-04-02 08:01 | PN ---
Subjective - Date and Time Seen Date: 04/02/17 Time: 07:52 Subjective Narrative: Patient siginificantly better but stiil complaining of left side pain-left lower rib. Objective - Review of Systems Generalized/Overall Review: Reports: Weakness. Denies: Chills, Fever EENTM: Reports: No Symptoms Reported Respiratory: Denies: Cough, Shortness of Breath, Orthopnea Cardiac: Denies: Chest Pain, Edema, Palpitations Abdominal: Denies: Nausea, Vomiting, Abdominal Pain Genitourinary Symptoms: Denies: Urgency, Frequency Musculoskeletal Complaints: Reports: Other - positive left lower rib pain - Vitals Vitals: Last Vital Signs Temp 37.4 C 04/02/17 04:44 Pulse 91 04/02/17 06:41 Resp 18 04/02/17 04:44 BP 120/69 04/02/17 06:41 Pulse Ox 98 04/02/17 04:44 - Abnormal Lab Findings Abnormal Lab Findings: Abnormal Lab Results 04/01/17 04/01/17 04/02/17 Range/Units 05:30 05:30 05:35 WBC 12.5 H (4.0-10.5) K/mm3 RBC 2.64 L (4.2-5.4) M/mm3 Hgb 8.0 L (12.5-16.0) gm/dL Hct 24.4 L (37.0-47.0) % Immature Gran % (Auto) 1.50 H (0.001-0.429) % Immature Gran # (Auto) 0.19 H (0.000-0.0310) K/mm3 Neutrophils % 83.7 H (42-75.0) % Lymphocytes % 5.1 L (20-51) % Neutrophils # 10.4 H (1.3-6.0) K/mm3 Lymphocytes # 0.6 L (1.5-3.5) k/mm3 Monocytes # 1.1 H (0.0-1.0) k/mm3 Carbon Dioxide (24-32.6) mmol/L BUN (3-23) mg/dL Creatinine (0.4-1.4) mg/dL Est GFR (Non-Af Amer) (60-130) mL/min Iron 21 L (35-120) mcg/dL TIBC 111 L (260-445) mcg/dL Ferritin 1244 H (8-252) ng/mL Vitamin B12 Greater than 2000 H (193-986) pg/mL 04/02/17 Range/Units 05:35 WBC (4.0-10.5) K/mm3 RBC (4.2-5.4) M/mm3 Hgb (12.5-16.0) gm/dL Hct (37.0-47.0) % Immature Gran % (Auto) (0.001-0.429) % Immature Gran # (Auto) (0.000-0.0310) K/mm3 Neutrophils % (42-75.0) % Lymphocytes % (20-51) % Neutrophils # (1.3-6.0) K/mm3 Lymphocytes # (1.5-3.5) k/mm3 Monocytes # (0.0-1.0) k/mm3 Carbon Dioxide 23.8 L (24-32.6) mmol/L BUN 26 H (3-23) mg/dL Creatinine 2.50 H (0.4-1.4) mg/dL Est GFR (Non-Af Amer) 21 L (60-130) mL/min Iron (35-120) mcg/dL TIBC (260-445) mcg/dL Ferritin (8-252) ng/mL Vitamin B12 (193-986) pg/mL - Exam Constitutional: Present: Alert, Oriented x3, Cooperative ENT Exam: Present: hearing grossly normal Neck: Present: supple Cardiovascular/Chest: Present: regular rate, rhythm, no murmur, no rub, other - positive direct tenderness over the left lower rib Abdomen: Present: Normal bowel sounds, soft, nontender, nondistended Extremity: Present: no calf tenderness Assessment/Plan - Problems/Diagnosis (1) Acute renal failure (ARF) Problem: Acute Narrative: back to her baseline. (2) Pyelonephritis Problem: Acute Narrative: growing E.Coli more sensitive to Ceftriaxone. will change back to IV rocephin Day # 5 of IV antibiotics. (3) Leukocytosis Problem: Acute Narrative: down to 12.5. (4) Renal transplant recipient Problem: Chronic (5) Nausea & vomiting Problem: Resolved Narrative: tolerating full liquids. abdomen no longer distended. will progress to soft diet. (6) Anemia Problem: Chronic Narrative: likely anemia of chronic illness-CKD. (7) Left sided chest pain Problem: Acute Narrative: ever since she was examined for CVA tenderness- likely musculoskeletal.. positive direct tenderness . will get rib series.
[2017-04-02] MEDS: ENOXAPARIN SODIUM 30 MG/0.3 ML SYRG SC SCH (09:08)
[2017-04-02 12:01] LABS: P-ANCA Titer DNR titer (<1:20)
[2017-04-02] MEDS: SIMVASTATIN 20 MG TABLET PO SCH (21:17)
[2017-04-03 05:44] LABS: Hematocrit 25.5 % (37.0-47.0); Hemoglobin 8.2 gm/dL (12.5-16.0); Mean Cell Volume 93.4 fl (78-100); Mean Corpuscular Hgb Conc 32.2 g/dl (32-36); Mean Platelet Volume 9.3 fl (6.0-9.5); Neutrophil # 10.5 K/mm3 (1.3-6.0); Neutrophil % 82.3 % (42-75.0); Platelet Count 429 K/mm3 (150-450); Red Blood Count 2.73 M/mm3 (4.2-5.4); Red Cell Distribution Width 13.8 % (11.5-14.0); White Blood Count 12.8 K/mm3 (4.0-10.5)
[2017-04-03 06:30] LABS: Anion Gap 13.6 mmol/L (6.8-13.8); BUN/Creatinine Ratio 12.6 (9.0-21.6); Calcium * 8.7 mg/dL (7.9-10.9); Carbon Dioxide 25.2 mmol/L (24-32.6); Estimated Creat Clear 20.4; Potassium 4.8 mmol/L (3.4-4.6)
[2017-04-03] MEDS: predniSONE 5 MG TABLET PO SCH (07:20)
[2017-04-03] MEDS: amLODIPine BESYLATE 10 MG TABLET PO SCH (07:20)
[2017-04-03] MEDS: MYCOPHENOLATE MOFETIL 500 MG TABLET PO SCH ×2 (07:20→16:19)
[2017-04-03] MEDS: TACROLIMUS ANHYDROUS 0.5 MG CAPSULE PO SCH ×2 (07:20→16:19)
[2017-04-03] MEDS: SODIUM BICARBONATE 650 MG TABLET PO SCH ×3 (07:21→16:19)
[2017-04-03] MEDS: CYANOCOBALAMIN 1,000 MCG TABLET PO SCH (07:21)
[2017-04-03] MEDS: PANTOPRAZOLE SODIUM 40 MG in NORMAL SALINE 100 ML IV SCH (08:57)
[2017-04-03] MEDS: ENOXAPARIN SODIUM 30 MG/0.3 ML SYRG SC SCH (08:58)
[2017-04-03] MEDS: TRIAMCINOLONE ACETONIDE 5 APPL TUBE DT SCH (13:16)
[2017-04-03] MEDS: SIMVASTATIN 20 MG TABLET PO SCH (20:41)
[2017-04-04] MEDS: TACROLIMUS ANHYDROUS 0.5 MG CAPSULE PO SCH ×2 (07:50→16:44)
[2017-04-04] MEDS: amLODIPine BESYLATE 10 MG TABLET PO SCH (07:51)
[2017-04-04] MEDS: CYANOCOBALAMIN 1,000 MCG TABLET PO SCH (07:52)
[2017-04-04] MEDS: predniSONE 5 MG TABLET PO SCH (07:52)
[2017-04-04] MEDS: MYCOPHENOLATE MOFETIL 500 MG TABLET PO SCH ×2 (07:52→16:44)
[2017-04-04] MEDS: SODIUM BICARBONATE 650 MG TABLET PO SCH ×3 (07:52→16:44)
[2017-04-04] MEDS: ENOXAPARIN SODIUM 30 MG/0.3 ML SYRG SC SCH (08:04)
[2017-04-04] MEDS: PANTOPRAZOLE SODIUM 40 MG in NORMAL SALINE 100 ML IV SCH (08:45)
[2017-04-04] MEDS: TRIAMCINOLONE ACETONIDE 5 APPL TUBE DT SCH (08:51)
[2017-04-04 10:11] LABS: Hemoglobin 8.1 gm/dL (12.5-16.0); Mean Cell Volume 94.5 fl (78-100); Mean Corpuscular Hemoglobin 29.5 pg (27-31); Mean Corpuscular Hgb Conc 31.2 g/dl (32-36); Mean Platelet Volume 8.6 fl (6.0-9.5); Neutrophil # 12.2 K/mm3 (1.3-6.0); Platelet Count 467 K/mm3 (150-450); Red Blood Count 2.75 M/mm3 (4.2-5.4); Red Cell Distribution Width 13.7 % (11.5-14.0); White Blood Count 14.4 K/mm3 (4.0-10.5)
[2017-04-04 10:24] LABS: Albumin * 2.2 gm/dl (3.4-5.0); Anion Gap 16.3 mmol/L (6.8-13.8); BUN/Creatinine Ratio 12.8 (9.0-21.6); Bilirubin, Total 0.2 mg/dL (0.0-1.1); Ca. Corrected For Albumin 9.6 mg/dL (8.4-10.2); Calcium * 8.5 mg/dL (7.9-10.9); Carbon Dioxide 23.9 mmol/L (24-32.6); Potassium 5.2 mmol/L (3.4-4.6); Total Protein 6.6 gm/dL (6.2-8.2)
[2017-04-04] MEDS: CIPROFLOXACIN HCL 500 MG TABLET PO SCH ×2 (12:23→20:10)
--- NOTE | 2017-04-04 12:23 | PN ---
Subjective - Date and Time Seen Date: 04/03/17 Objective - Vitals Vitals: Last Vital Signs Temp 36.6 C 04/04/17 11:05 Pulse 98 04/04/17 11:05 Resp 18 04/04/17 11:05 BP 128/82 04/04/17 11:05 Pulse Ox 98 04/04/17 11:05 - Abnormal Lab Findings Abnormal Lab Findings: Abnormal Lab Results 04/04/17 04/04/17 Range/Units 10:05 10:05 WBC 14.4 H (4.0-10.5) K/mm3 RBC 2.75 L (4.2-5.4) M/mm3 Hgb 8.1 L (12.5-16.0) gm/dL Hct 26.0 L (37.0-47.0) % MCHC 31.2 L (32-36) g/dl Plt Count 467 H (150-450) K/mm3 Immature Gran % (Auto) 2.20 H (0.001-0.429) % Immature Gran # (Auto) 0.32 H (0.000-0.0310) K/mm3 Neutrophils % 85.0 H (42-75.0) % Lymphocytes % 3.2 L (20-51) % Monocytes % 9.1 H (0.0-9) % Neutrophils # 12.2 H (1.3-6.0) K/mm3 Lymphocytes # 0.5 L (1.5-3.5) k/mm3 Monocytes # 1.3 H (0.0-1.0) k/mm3 Potassium 5.2 H (3.4-4.6) mmol/L Carbon Dioxide 23.9 L (24-32.6) mmol/L Anion Gap 16.3 H (6.8-13.8) mmol/L BUN 32 H (3-23) mg/dL Creatinine 2.50 H (0.4-1.4) mg/dL Est GFR (Non-Af Amer) 21 L (60-130) mL/min Random Glucose 116 H (70-110) mg/dL ALT 18 L (19-67) U/L Albumin 2.2 L (3.4-5.0) gm/dl
--- NOTE | 2017-04-04 12:26 | PN ---
Subjective - Date and Time Seen Date: 04/04/17 Objective - Vitals Vitals: Last Vital Signs Temp 36.6 C 04/04/17 11:05 Pulse 98 04/04/17 11:05 Resp 18 04/04/17 11:05 BP 128/82 04/04/17 11:05 Pulse Ox 98 04/04/17 11:05 - Abnormal Lab Findings Abnormal Lab Findings: Abnormal Lab Results 04/04/17 04/04/17 Range/Units 10:05 10:05 WBC 14.4 H (4.0-10.5) K/mm3 RBC 2.75 L (4.2-5.4) M/mm3 Hgb 8.1 L (12.5-16.0) gm/dL Hct 26.0 L (37.0-47.0) % MCHC 31.2 L (32-36) g/dl Plt Count 467 H (150-450) K/mm3 Immature Gran % (Auto) 2.20 H (0.001-0.429) % Immature Gran # (Auto) 0.32 H (0.000-0.0310) K/mm3 Neutrophils % 85.0 H (42-75.0) % Lymphocytes % 3.2 L (20-51) % Monocytes % 9.1 H (0.0-9) % Neutrophils # 12.2 H (1.3-6.0) K/mm3 Lymphocytes # 0.5 L (1.5-3.5) k/mm3 Monocytes # 1.3 H (0.0-1.0) k/mm3 Potassium 5.2 H (3.4-4.6) mmol/L Carbon Dioxide 23.9 L (24-32.6) mmol/L Anion Gap 16.3 H (6.8-13.8) mmol/L BUN 32 H (3-23) mg/dL Creatinine 2.50 H (0.4-1.4) mg/dL Est GFR (Non-Af Amer) 21 L (60-130) mL/min Random Glucose 116 H (70-110) mg/dL ALT 18 L (19-67) U/L Albumin 2.2 L (3.4-5.0) gm/dl
[2017-04-04] MEDS: SIMVASTATIN 20 MG TABLET PO SCH (20:11)
[2017-04-05] MEDS: CYANOCOBALAMIN 1,000 MCG TABLET PO SCH (06:33)
[2017-04-05] MEDS: amLODIPine BESYLATE 10 MG TABLET PO SCH (06:33)
[2017-04-05] MEDS: SODIUM BICARBONATE 650 MG TABLET PO SCH (06:33)
[2017-04-05] MEDS: MYCOPHENOLATE MOFETIL 500 MG TABLET PO SCH (06:34)
[2017-04-05] MEDS: predniSONE 5 MG TABLET PO SCH (06:34)
[2017-04-05] MEDS: TACROLIMUS ANHYDROUS 0.5 MG CAPSULE PO SCH (06:34)
[2017-04-05 06:47] VITALS: BP 147/78
--- NOTE | 2017-04-05 08:12 | DS ---
(1) Acute renal failure (ARF) Diagnosis(s): back to her baseline of CRF Stage IV Problem: Acute (2) Pyelonephritis Diagnosis(s): treated with IV antibiotics x 7 days. On Cipro. will continue it for anotehr 7 days. follow up with is PCP , Dr. Miller this Wednesday Problem: Acute (3) Leukocytosis Diagnosis(s): still elevated . will continue with outpatient oral antibiotics x 7 more days. repeat CBC, BMP on Wednesday. Problem: Acute (4) Renal transplant recipient Problem: Chronic (5) Nausea & vomiting Problem: Resolved (6) Anemia Diagnosis(s): anemia of chronic illness/CKD Problem: Chronic (7) Left sided chest pain Diagnosis(s): significantly improved. Problem: Acute Description of Stay: betty Miner, is a 56-yr-old [place] pt of Dr. Andrei Vogel in [place], [place]., with PMH significant for: Anemia, HLD, Bilateral Renal Calcifications, Depression, Polycystic kidney disease s/p RT renal transplant 2011 & Secondary hyperparathyroidsm, who was admitted on 03/29/2017 for left flank pain and nausea. . Pt stated that she first developed LT flank pain on Tuesday 03/27. She took OTC pain medication which provided little relief. Then over the weekend, she started developing nausea, but no vomiting. She reports having decreased appetite and has not drunk much fluid or eaten well. The pain had been unrelenting for the past 3 days and finally chose to come to the ED tonight. The pain radiated to the lower abdomen. She denied fevers, but reports having chills. At the ED tonight, Laboratory studies showed an elevated WBC of 20,900 with a LT shift, BUN/CR of 42/3.14, Est. GFR of 16 and UA was positive for a UTI. During physical examination, she in mild distress from LT flank pain, is found to have LT CVA Tenderness and febrile with a temp of 38. The Abdominal X- ray at the ED did not have any acute findings. No additional radiographic imaging pending/completed. She was admitted and started on IVF and IV rocephin. Her WBC went down and then went up again and so her IV rocephin was changed to cefepime to cover for possible pseudomonas as he her UCS at that time was showing Gram negative rods. Her fever lysed and her WBC started to go down again. Her CJ showed no hydronephrosis but showed pelviectasis. Case was discussed with Dr. Marte and he recommend to continue with IV antibiotics as patients with renal trnasplants takes a longer time to respond to antibioticsand you can see pelviectasis. Her final UCS showed E. Coli and her cefepime was change back to Ceftriaxone due to better sensitivity. Her WBC started to go up again but clinically she has significantly improved. Will discharge her today on Cipro 500 mg PO QD for another 7 days and low K diet. She will follow up with her PCP this with a repeat CBC, BMP. She is adamant to go home today. Will do a follow up UCS today. Procedures Performed: none Discharge Disposition: Home self care Disposition: Home self-care Condition: Good Discharge Activity: Activity as tolerated Discharge Diet: General/regular food Referrals: Andrei Vogel MD [Primary Care Provider] - Problem Oriented Discharge Instructions to Patient/Family: Pyelonephritis, Adult, [id number], Urinary Tract Infection, Adult, [id number] Additional Patient Instructions (free text): Please make an an appointment with her PCP, Dr Miller on Wednesday. BMP/CBC on Wednesday. Follow up with Dr. Vogel 04/08 at 11:15 please get LAB done 04/08 before appointment. Prescriptions (Any new or edited meds): Acetaminophen [Tylenol] 650 mg PO Q6H PRN #30 tablet PRN Reason: Mild Pain Ciprofloxacin HCl [Cipro] 500 mg PO DAILY #7 tablet Complete Home Medications List: Complete Home Medication List: Famotidine 20 mg PO DAILY 03/01/13 Lovastatin 40 mg PO DAILY 03/01/13 Mycophenolate Mofetil [Cellcept] 500 mg PO BID 03/01/13 Tacrolimus [Hecoria] 3 mg PO BID 03/01/13 predniSONE [Prednisone] 5 mg PO DAILY 03/01/13 Amlodipine Besylate 10 mg PO DAILY 03/28/17 Cyanocobalamin (Vitamin B-12) [Vitamin B12] 2,500 mcg PO DAILY 03/28/17 Sodium Bicarbonate 325 mg PO TID 03/28/17 Acetaminophen [Tylenol] 650 mg PO Q6H PRN #30 tablet 04/05/17 Ciprofloxacin HCl [Cipro] 500 mg PO DAILY #7 tablet 04/05/17 Amb Orders for Discharge: Basic Metabolic Panel Time Frame: 04/09/17, Location: Determined By Patient CBC Time Frame: 04/09/17, Location: Determined By Patient
[2017-04-05 08:34] LABS: Hematocrit 25.5 % (37.0-47.0); Hemoglobin 8.2 gm/dL (12.5-16.0); Mean Cell Volume 95.1 fl (78-100); Mean Corpuscular Hemoglobin 30.6 pg (27-31); Mean Corpuscular Hgb Conc 32.2 g/dl (32-36); Mean Platelet Volume 8.6 fl (6.0-9.5); Neutrophil # 13.3 K/mm3 (1.3-6.0); Neutrophil % 88.6 % (42-75.0); Platelet Count 489 K/mm3 (150-450); Red Blood Count 2.68 M/mm3 (4.2-5.4); Red Cell Distribution Width 13.5 % (11.5-14.0)
[2017-04-05] MEDS: PANTOPRAZOLE SODIUM 40 MG in NORMAL SALINE 100 ML IV SCH (08:36)
[2017-04-05] MEDS: TRIAMCINOLONE ACETONIDE 5 APPL TUBE DT SCH (08:36)
[2017-04-05] MEDS: ENOXAPARIN SODIUM 30 MG/0.3 ML SYRG SC SCH (08:37)
[2017-04-05] MEDS ORDERED: CIPROFLOXACIN HCL 500 MG TABLET PO SCH (09:00)
[2017-04-05 10:20] LABS: Urine Bilirubin Negative (NEGATIVE); Urine Blood 50 /ul (NEGATIVE); Urine Ketone Negative (NEGATIVE); Urine Nitrite Negative (NEGATIVE); Urine Protein 30 mg/dL (NEGATIVE); Urine Urobilinogen Normal (NORMAL)
[2017-04-05 10:29] LABS: Urine Appearance Clear; Urine Bacteria 1+; Urine Color Yellow
--- NOTE | 2017-04-05 11:10 | ECHO ---
This report is available in the EMR
== END 2017-04-05 11:45 | disposition home or self-care (01) | DRG 690 ==
LOC: ER 21:24 → MS 03-29 00:26 → OBSVTOIN 03-29 01:03
PROVIDERS: ADMIT Nurse Practitioner; ATTEND Internal Medicine
PROC: B246ZZZ Ultrasonography of Right and Left Heart (ICD-10-PCS; principal; 2017-04-01)
DX: N10 Acute pyelonephritis (principal); Z94.0 Kidney transplant status; N17.8 Other acute kidney failure; D72.829 Elevated white blood cell count, unspecified; N28.89 Other specified disorders of kidney and ureter; N18.4 Chronic kidney disease, stage 4 (severe); E78.5 Hyperlipidemia, unspecified; Z23 Encounter for immunization
CPT/HCPCS: 36415; 71020; 71100; 74020; 76770; 80048; 80053; 80076; 81001; 82150; 82272; 82607; 82728; 82746; 82784; 83520; 83540; 83550; 83605; 83690; 83880; 84100; 84132; 85025; 85652; 86021; 86140; 87040; 87077; 87086; 87186; 90686; 93306; 96365; 99284; G0008; J2405